=== PATIENT | female | born 1965 | race Caucasian/White ===

== ENCOUNTER 2018-11-13 13:53 | Inpatient (IN) | payer MEDICARE, MEDICAID ==
[~2018-11-13] VITALS: Ht 157.5 cm; Wt 89.7 kg
[2018-11-13] MEDS ORDERED: mag hydrox/Alum hydrox/simeth 30ml oral suspension PO PRN (14:05)
[2018-11-13] MEDS ORDERED: loperamide 2mg capsule PO PRN (14:05)
[2018-11-13] MEDS ORDERED: hydrOXYzine 25 MG tablet PO PRN (14:05)
[2018-11-13] MEDS ORDERED: acetaminophen 325mg tablet PO PRN ×2 (14:05)
[2018-11-13] MEDS ORDERED: NICOTINE POLACRILEX 2 MG LOZENGE MM PRN (14:05)
[2018-11-13] MEDS ORDERED: magnesium hydroxide 30ml (MOM) UD suspension PO PRN (14:05)
[2018-11-13] MEDS ORDERED: tuberculin, purif. prot. deriv. 5 units/0.1ml ID ONE (14:05)
[2018-11-13] MEDS ORDERED: NO HOME MEDS (14:45)
[2018-11-13] MEDS ORDERED: diphenhydrAMINE 50 mg/ml inj ONE (15:36)
[2018-11-13] MEDS ORDERED: haloperidol lactate 5mg/ml inj ONE (15:36)
[2018-11-13] MEDS ORDERED: LORazepam 2 mg/ml vial ONE (15:37)
--- NOTE | 2018-11-13 16:53 | NUR ---
Admission note: Pt admitted to [place] for Behavioral health at 1522 today for Psychosis. Pt transported from [facility] and wheel chaired to this unit. Pt 5150 for gravely disabled. Pt engaging in bizarre behavior at [facility] where police needed to intervene. Pt made statements about playing [employer]. Pt unable to identify friends, family or children. Pt reports long history of mental health issues. Pt was not cooperative upon arrival. Pt refusing to change into gown or enter the shower. Pt calling names and profanity. Pt making several statements about Jews, against jews, calling everyone Jews. While attempting to get ahold of MD to get medication orders, pt starts to trust the staff and somewhat cooperative. Pt answers questions for admission but refuses signatures. Pt wandering around the unit. PTs inventory completed.
[2018-11-13 19:00] VITALS: BP 116/75
[2018-11-13] MEDS: LORazepam 1 MG tablet PO PRN (20:25)
--- NOTE | 2018-11-14 01:47 | NUR ---
RN PROGRESS NOTE: LEGAL HOLD: 5150 for GD/Psychosis THIS SHIFT: Client was lying on her side, in bed, with her back to this RN. When asked about clients admission to [facility], client stated "Ahhh, I don't know. Ahh, I've been off my meds for about 20 years. Ahhh, I took Depakote 10 years ago. Ahh, I have schizophrenia." Initially the client spoke to this RN. The physical assessment was limited, as client declined assessment. The client then showed this RN her right arm, which was bruised and had an abrasion. Client stated, "The police beat me up! They wear tazers on their belts. They better not taze me! The police girl said she was gonna' taze me! I better not see her!" As client spoke she began to talk loudly and became agitated. At that point this RN concluded the assessment, assuring the client that she was safe on the unit and she could use the call light if she needed anything. The client accepted 1 mg Ativan Tab PO. At that time her mood had improved. Client did leave the room at snack time, ate and returned to bed. MSE: Client is is disheveled with messy hair. She has poor eye contact. Mood is labile, client is easily agitated. Affect is blunted. Tangential, client does not stay on topic. Compliant with medication. Client does not appear to understand what led up to her admission. Client is unable to arrange adequate food and fpc. Clients labile mood could lead to physical altercations, assault, or arrest. Client lacks insight and uses poor judgement at this time.
[2018-11-14 07:27] LABS: CHOL/HDL RATIO 3.8 (0.00-4.99); CHOLESTEROL 164 MG/DL (0-200); HDL CHOLESTEROL 43 MG/DL (35-60); LDL CHOLESTEROL 108 MG/DL (50-100); TRIGLYCERIDES 68 MG/DL (20-135)
[2018-11-14 07:34] LABS: HEMOGLOBIN A1C 4.9 % (4.5-6.2)
[2018-11-14 07:37] VITALS: BP 106/73
[2018-11-14] MEDS: LORazepam 1 MG tablet PO PRN ×2 (08:15→20:56)
--- NOTE | 2018-11-14 14:35 | NUR ---
Nursing Progress Note Legal hold: 5150 Client on voluntary/involuntary status for GD Report received from nurse Alba OLMSTEAD with use of SBAR Why are they here: Pt admitted to [place] for Behavioral health at 1522 today for Psychosis. Pt transported from [facility] and wheel chaired to this unit. Pt placed on 5150 for gravely disabled. Pt engaging in bizarre behavior at [facility] where police needed to intervene. Pt made statements about playing [employer]. Pt unable to identify friends, family or children. Pt reports long history of mental health issues. Assessment What has happened this shift: Patient asleep upon change of shift observation. Awakened for morning introductions and for AM blood draw. Cooperative with blood draw. Informed breakfast was ready. Presented as formal in behavior and tone of voice. "Yes Misty. I will go to breakfast now Misty. Thank you Misty." After breakfast stated she needed "the medications I take every morning: Ativan, Klonopin and Adderall." PRN order for Ativan available and given to patient. Patient has no scheduled medications to administer at this time. Patient again stated she has no memory of what brought her to the hospital. Stated "Things happened and then I ended up here." Minimal interaction with staff or peers. Kept herself isolated in her room. S/I, H/I:Did not answer A/VH: Did not respond Sleep: Napped off and on throughout the shift ADL's: Refused to shower Group attendance: Negative Were meds taken: Ativan 1 mg. PRN X 2 Any med S/E: None noted or verbalized by patient Mental Status Exam Appearance:Disheveled Eye contact: Poor Behavior: Isolative Speech: Abrupt Mood: Serious Affect: Flat Thought process: Linear Thought Content: Limited Cognition: Unable to assess at this time Insight: Unable to Assess Judgment:Unable to Assess Interventions PRN's used: Ativan 1 mg. PRN X 2 Therapeutic interventions: 1:1 assessment, provided therapeutic communication and active listening, provided medication administration/education/monitoring as ordered. Q15 min safety checks. Pt has been assigned a sitter. Restraints/seclusion/emergency medication: N/A Justification of Continued Inpatient Treatment: Pt. had a severe suicide attempt further medication adjustment to stabilize current crisis is needed. Without adequate treatment for current situation, pt is at high risk for readmission if discharged at this time.
[2018-11-14] MEDS ORDERED: haloperidol lactate 5mg/ml inj IM PRN (16:35)
[2018-11-14] MEDS ORDERED: LORazepam 2 mg/ml vial IV PRN (16:35)
[2018-11-14] MEDS ORDERED: haloperidol 5mg tablet PO PRN (16:35)
[2018-11-14] MEDS ORDERED: temazepam 15mg capsule PO PRN (19:25)
[2018-11-14 20:00] VITALS: BP 110/75
[2018-11-14] MEDS: hydrocortisone 1% cream 28gm TP SCH (20:48)
[2018-11-14] MEDS: PALIPERIDONE 3 MG TAB.ER.24 PO SCH (21:09)
--- NOTE | 2018-11-14 22:08 | NUR ---
Nursing Progress Note Legal hold: 5150 Client on voluntary/involuntary status for GD Report received from nurse Armin OLMSTEAD with use of SBAR Why are they here: Pt admitted to [place] for Behavioral health at 1522 today for Psychosis. Pt transported from [facility] and wheel chaired to this unit. Pt placed on 5150 for gravely disabled. Pt engaging in bizarre behavior at [facility] where police needed to intervene. Pt made statements about playing [employer]. Pt unable to identify friends, family or children. Pt reports long history of mental health issues. Assessment What has happened this shift: Patient in bed upon change of shift observation. Introduced self and observation and assessed pt. Patient was pleasant and cooperative with signing consents. Obtained MRSA swab and sent to lab. Pt up for snacks then returned to bed. New order for Invega started and prn Ativan given. Patient again stated she has no memory of what brought her to the hospital. Stated "Things happened and then I ended up here." Minimal interaction with staff or peers. Kept herself isolated in her room. S/I, H/I:Did not answer A/VH: Did not respond Sleep: Napped off and on throughout the shift ADL's: Refused to shower Group attendance: Negative Were meds taken: Ativan 1 mg. PRN X 2 Any med S/E: None noted or verbalized by patient Mental Status Exam Appearance:Disheveled Eye contact: Poor Behavior: Isolative Speech: Abrupt Mood: Serious Affect: Flat Thought process: Linear Thought Content: Limited Cognition: Unable to assess at this time Insight: Unable to Assess Judgment:Unable to Assess Interventions PRN's used: Ativan 1 mg. PRN X 2 Therapeutic interventions: 1:1 assessment, provided therapeutic communication and active listening, provided medication administration/education/monitoring as ordered. Q15 min safety checks. Pt has been assigned a sitter. Restraints/seclusion/emergency medication: N/A Justification of Continued Inpatient Treatment: Pt. had a severe suicide attempt further medication adjustment to stabilize current crisis is needed. Without adequate treatment for current situation, pt is at high risk for readmission if discharged at this time.
[2018-11-15 07:04] LABS: BASOPHILS # (AUTO) 0.1 X10'3 (0-0.2); BASOPHILS % (AUTO) 1.1 % (0-1); EOSINOPHILS # (AUTO) 0.2 X10'3 (0-0.9); EOSINOPHILS % (AUTO) 3.2 % (0-6); HEMATOCRIT 41.1 % (35.0-45.0); HEMOGLOBIN 13.9 g/dl (12.0-16.0); LYMPHOCYTES % (AUTO) 32.4 % (21-51); MEAN CORPUSCULAR HEMOGLOBIN 31.1 PG (27.0-31.0); MEAN CORPUSCULAR HGB CONC 33.8 g/dL (33.0-36.5); MEAN CORPUSCULAR VOLUME 92.1 FL (78-98); MEAN PLATELET VOLUME 8.4 FL (7.4-10.4); MONOCYTES # (AUTO) 0.4 X10'3 (0-0.9); MONOCYTES % (AUTO) 6.9 % (2-12); NEUTROPHILS # (AUTO) 3.5 X10'3 (1.8-7.7); NEUTROPHILS % (AUTO) 56.4 % (42-75); PLATELET COUNT 310 X10'3 (140-440); RED BLOOD COUNT 4.47 X10'6 (4.20-5.60); RED CELL DISTRIBUTION WIDTH 13.5 % (11.5-14.5); WHITE BLOOD COUNT 6.2 X10'3 (4.5-11.0)
[2018-11-15 07:21] VITALS: BP 94/73
[2018-11-15 07:34] LABS: ALANINE AMINOTRANSFERASE 31 U/L (12-78); ALBUMIN/GLOBULIN RATIO 0.8 (1.1-1.5); ALKALINE PHOSPHATASE 80 IU/L (46-116); ANION GAP 8 (8-16); ASPARTATE AMINO TRANSFERASE 21 U/L (10-37); BILIRUBIN,TOTAL 0.3 MG/DL (0.1-1.0); BLOOD UREA NITROGEN 15 MG/DL (7-18); BUN/CREATININE RATIO 19.2 (6.6-38.0); CALCIUM 8.7 MG/DL (8.5-10.1); CHLORIDE 107 MMOL/L (99-107); CREATININE 0.78 MG/DL (0.40-0.90); GLUCOSE 90 MG/DL (70-104); POTASSIUM 3.8 MMOL/L (3.5-5.1); SODIUM 141 MMOL/L (135-145); TOTAL CARBON DIOXIDE 25.7 MMOL/L (24-32); TOTAL PROTEIN 6.8 G/DL (6.4-8.2); eGFR 77 ML/MIN
[2018-11-15] MEDS: folic acid 1mg tablet PO SCH (08:32)
[2018-11-15] MEDS: multivitamins, therapeutics tablet PO SCH (08:33)
[2018-11-15] MEDS: thiamine 100mg tablet PO SCH (08:33)
[2018-11-15] MEDS: hydrocortisone 1% cream 28gm TP SCH ×2 (08:37→20:25)
--- NOTE | 2018-11-15 17:53 | NUR ---
Nursing Progress Note Legal hold: 5150 Client on voluntary/involuntary status for GD Report received from nurse Alba OLMSTEAD with use of SBAR Why are they here: Pt admitted to [place] for Behavioral health at 1522 today for Psychosis. Pt transported from [facility] and wheel chaired to this unit. Pt placed on 5150 for gravely disabled. Pt engaging in bizarre behavior at [facility] where police needed to intervene. Pt made statements about playing [employer]. Pt unable to identify friends, family or children. Pt reports long history of mental health issues. Assessment What has happened this shift: Patient in bed at change of shift. Patient was pleasant and cooperative with morning med pass. She was med compliant. She c/o her itchy bug bites on her legs. Patient continues to have no memory of why she is in hospital. Minimal interaction with staff or peers today. Kept herself isolated in her room most of the day. Dr Colindres reports that she will be starting oral Abilify instead of Invega tonight, as she is resistant to taking Invega. Also D/C CIWA monitoring as she has been consistently stable. S/I, H/I: Unknown A/VH: unknown Sleep: 6.25 NOC ADL's: Refused to shower Group attendance: Negative Were meds taken: yes Any med S/E: None noted or verbalized by patient Mental Status Exam Appearance:Disheveled Eye contact: Poor Behavior: Isolative Speech: Abrupt Mood: Serious Affect: Flat Thought process: Linear Thought Content: Limited Cognition: Unable to assess at this time Insight: Unable to Assess Judgment:Unable to Assess Interventions PRN's used: N/A Therapeutic interventions: 1:1 assessment, provided therapeutic communication and active listening, provided medication administration/education/monitoring as ordered. Q15 min safety checks. Pt has been assigned a sitter. Restraints/seclusion/emergency medication: N/A Justification of Continued Inpatient Treatment: Pt. had a severe suicide attempt further medication adjustment to stabilize current crisis is needed. Without adequate treatment for current situation, pt is at high risk for readmission if discharged at this time.
[2018-11-15 20:00] VITALS: BP 115/76
[2018-11-15] MEDS: PALIPERIDONE 3 MG TAB.ER.24 PO SCH (20:24)
[2018-11-15] MEDS ORDERED: aripiprazole 5mg tablet PO SCH (21:00)
--- NOTE | 2018-11-16 00:08 | NUR ---
Nursing Progress Note Legal hold: 5150 Client on voluntary/involuntary status for GD Report received from nurse Thomas RN with use of SBAR Why are they here: Pt admitted to [place] for Behavioral health at 1522 today for Psychosis. Pt transported from [facility] and wheel chaired to this unit. Pt placed on 5150 for gravely disabled. Pt [place] [facility]. Pt made statements about playing [employer]. Pt unable to identify friends, family or children. Pt reports long history of mental health issues. Assessment What has happened this shift: Patient in bed at change of shift. Patient was pleasant and cooperative with HS med pass. She refuses to sign medication consent this evening. When asked if she talked to the Dr about Abilify she nods, the medication consent is explained again, but patient still refuses to sign it. She also refuses a physical assessment only allowing minimal interaction and would not allow this group underwriter to use her stethoscope to assess her. She nods or shakes her heads for some questions, but then covers her head and will no longer interact with this group underwriter. S/I, H/I: Unknown A/VH: Unknown Sleep: See sleep assessment ADL's: Refused to shower Group attendance: No groups this shift went to group room for evening snack Were meds taken: yes Any med S/E: None noted or verbalized by patient Mental Status Exam Appearance: Disheveled Eye contact: Poor Behavior: Isolative, fearful Speech: None, only would nod or shake head Mood: Appears fearful, stays under sheets/blanket Affect: Congruent to mood Thought process: Unable to assess Thought Content: Limited Cognition: Unable to assess at this time Insight: Unable to Assess Judgment: Unable to Assess Interventions PRN's used: N/A Therapeutic interventions: 1:1 assessment, provided therapeutic communication and active listening, provided medication administration/education/monitoring as ordered. Q15 min safety checks. Pt has been assigned a sitter. Restraints/seclusion/emergency medication: N/A Justification of Continued Inpatient Treatment: Pt. had a severe suicide attempt further medication adjustment to stabilize current crisis is needed. Without adequate treatment for current situation, pt is at high risk for readmission if discharged at this time.
[2018-11-16 08:00] VITALS: BP 110/72
[2018-11-16] MEDS ORDERED: PALIPERIDONE 3 MG TAB.ER.24 PO SCH (08:00)
[2018-11-16] MEDS: LORazepam 1 MG tablet PO PRN (08:17)
[2018-11-16] MEDS: folic acid 1mg tablet PO SCH (08:18)
[2018-11-16] MEDS: thiamine 100mg tablet PO SCH (08:18)
[2018-11-16] MEDS: hydrocortisone 1% cream 28gm TP SCH ×2 (08:23→20:28)
[2018-11-16] MEDS: multivitamins, therapeutics tablet PO SCH (08:23)
--- NOTE | 2018-11-16 12:04 | NUR ---
Nursing 1:1 Documentation Patient out of bed and sitting in the rec room upon change of shift inspection. Matter of fact upon staff approach. "Philly Jay. I know. You are going to be my nurse today." Declined to participate in a mental health assessment. Refused to sign medication consent for Abilify. Stated "No.No. I'm not taking Abilify. Find me another drug." Dr. Colindres here and informed of patient's decision to refuse Abilify. Invega 3 mg. PO ordered and administered without event. Patient informed today was her day to take a shower. She agreed to take a shower today "but only after Madison, Belinda, and Germainsharronlane get their showers first. We need to go in order." Patient presents as believing she is part of the staff or needing to contribute to the unit process. It is difficult to assess what patient believes about what brought her to the hospital and why she remains here.
[2018-11-16] MEDS ORDERED: LORazepam 2 mg/ml vial IV PRN (16:35)
[2018-11-16] MEDS ORDERED: LORazepam 1 MG tablet PO PRN (16:35)
--- NOTE | 2018-11-16 17:25 | NUR ---
Nursing Progress Note Legal hold: 5150 Client on voluntary/involuntary status for GD Report received from nurse Thomas RN with use of SBAR Why are they here: [facility]22 today for Psychosis. Pt transported from [facility] and wheel chaired to this unit. Pt placed on 5150 for gravely disabled. Pt engaging in bizarre behavior at [facility] [place] where police needed to intervene. Pt made statements about playing [employer] Pt unable to identify friends, family or children. Pt reports long history of mental health issues. Assessment What has happened this shift: Please see note written earlier this shift S/I, H/I: Unknown A/VH: Unknown Sleep: See sleep assessment ADL's: Refused to shower Group attendance: No groups this shift went to group room for evening snack Were meds taken: yes Any med S/E: None noted or verbalized by patient Mental Status Exam Appearance: Showered today Eye contact: Present Behavior: Appropriate Speech: Clear/[place] Mood: Pleasant Affect: Appropriate Thought process: Linear Thought Content: Limited Cognition: Unable to assess at this time Insight: Unable to Assess Judgment: Unable to Assess Interventions PRN's used: N/A Therapeutic interventions: 1:1 assessment, provided therapeutic communication and active listening, provided medication administration/education/monitoring as ordered. Q15 min safety checks. Pt has been assigned a sitter. Restraints/seclusion/emergency medication: N/A Justification of Continued Inpatient Treatment: Pt. had a severe suicide attempt further medication
[2018-11-16 20:05] VITALS: BP 116/76
--- NOTE | 2018-11-16 23:44 | NUR ---
Nursing Progress Note Legal hold: 5150 Client on voluntary/involuntary status for GD Report received from nurse Moriah RN with use of SBAR Why are they here: [facility] at 1522 today for Psychosis. Pt transported from [facility] and wheel chaired to this unit. Pt placed on 5150 for gravely disabled. Pt engaging in bizarre behavior at [facility] where police needed to intervene. Pt made statements about playing [employer]. Pt unable to identify friends, family or children. Pt reports long history of mental health issues. Assessment What has happened this shift: Patient in bed at change of shift laying in her bed under the covers with only the top of her head and eyes showing. She is hesitant but agrees to a 1;1 assessment. She reports "It was a busy day. I went to groups and saw Dr. Colindres. I'm exhausted." After that patient turned back to only nodding and shaking her head. She say's she is hearing voices but does not elaborate, when asked about her arm injury patient just looked at this resume writer in silence. She remained in her room in bed the remainder of the shift. S/I, H/I: Denies A/VH: +AH Sleep: See sleep assessment ADL's: Showered today Group attendance: No groups this shift Were meds taken: Yes Any med S/E: None noted or verbalized by patient Mental Status Exam Appearance: Disheveled Eye contact: Poor Behavior: Isolative Speech: None, only would nod or shake head Mood: Appears fearful, stays under sheets/blanket Affect: Congruent to mood Thought process: Linear Thought Content: Focused on being tired and getting rest Cognition: Unable to assess at this time Insight: Unable to Assess Judgment: Unable to Assess Interventions PRN's used: N/A Therapeutic interventions: 1:1 assessment, provided therapeutic communication and active listening, provided medication administration/education/monitoring as ordered. Q15 min safety checks. Pt has been assigned a sitter. Restraints/seclusion/emergency medication: N/A Justification of Continued Inpatient Treatment: Pt. had a severe suicide attempt further medication adjustment to stabilize current crisis is needed. Without adequate treatment for current situation, pt is at high risk for readmission if discharged at this time.
[2018-11-17 08:00] VITALS: BP 90/69
[2018-11-17] MEDS: hydrocortisone 1% cream 28gm TP SCH ×2 (08:43→21:37)
[2018-11-17] MEDS: PALIPERIDONE 3 MG TAB.ER.24 PO SCH (08:43)
--- NOTE | 2018-11-17 17:42 | NUR ---
Nursing Progress Note Legal hold: 5150 Client on voluntary/involuntary status for GD Report received from nurse Natalia Lugo RN with use of SBAR Why are they here: [facility] at 1522 today for Psychosis. Pt transported from [facility] and wheel chaired to this unit. Pt placed on 5150 for gravely disabled. Pt engaging in bizarre behavior at [facility] [place] where police needed to intervene. Pt made statements about playing [employer]. Pt unable to identify friends, family or children. Pt reports long history of mental health issues. Assessment What has happened this shift: Patient up in visible this morning sitting in recreation room by herself staring out the window. Patient continues to endorse auditory hallucinations at times though she would not elaborate on content other than saying it was not bad. Patient denies depression, though she has flat affect. Patient denies suicidal thoughts at this time. Patient did attend all meals and groups. Patient does not initiate interaction with others. S/I, H/I: Unknown A/VH: yes Sleep: See sleep assessment ADL's: Refused to shower Group attendance: yes Were meds taken: yes Any med S/E: None noted or verbalized by patient Mental Status Exam Appearance: hospital scrubs, clean Eye contact: Present Behavior: Appropriate Speech: Clear/[place] Mood: Pleasant Affect: Appropriate Thought process: Linear Thought Content: Limited Cognition: Unable to assess at this time Insight: Unable to Assess Judgment: Unable to Assess Interventions PRN's used: N/A Therapeutic interventions: 1:1 assessment, provided therapeutic communication and active listening, provided medication administration/education/monitoring as ordered. Q15 min safety checks. Pt has been assigned a sitter. Restraints/seclusion/emergency medication: N/A Justification of Continued Inpatient Treatment: Pt. had a severe suicide attempt further medication
[2018-11-17 20:00] VITALS: BP 110/73
[2018-11-17] MEDS: LORazepam 1 MG tablet PO PRN (21:36)
--- NOTE | 2018-11-18 00:59 | NUR ---
Nursing Progress Note: Legal hold: Voluntary Client on voluntary GD Report received from nurse with use of SBAR: AYSHA Major Why are they here: Pt admitted for Psychosis after being transported by [facility]. Pt placed on 5150 for gravely disabled. She was engaging in bizarre behavior at [facility] where police needed to intervene. Pt made statements about playing [employer]. Pt unable to identify friends, family or children. Pt reports long history of mental health issues including schizophrenia. Assessment What has happened this shift: Pt. presents as fatigued and isolates in bed throughout the shift. 1:1 completed at bedside, pt. is cooperative, anxious, guarded, and requests PRN Ativan for anxiety. She is alert and oriented X3, reports she is at [facility], however is easily reoriented by this scientific writer. Pt. denies any A/V/LYNCH at this time, however states, "I sometimes have them, I have schizophrenia." She also reports PTSD r/t past trauma and states, "I'm grateful to be here, it's not safe outside, and I feel like I'm being followed." She reports that she is triggered by loud noises and machine gun fire. Pt. admits that she continues to feel paranoid and fear for her safety here on the unit, but is unable to articulate why r/t disorganized thoughts. This scientific writer reassured pt. of the safety on the unit and encouraged her request assistance from staff for any needs, pt. voiced content. Ordered Hydrocortisone Cream applied to bilateral lower extremities, will monitor. S/I, H/I: N/A A/VH: Denies at this time, does not appear to be internally preoccupied Sleep: Presents as fatigued and reports she sleeps well ADL's: Requires prompting and encouragement from staff Group attendance: Pt. does not attend HS snack Were meds taken: Yes Any med S/E: None Mental Status Exam Appearance: Hair is somewhat disheveled, however dressed appropriately in hospital attire Eye contact: Fair Behavior: Cooperative, anxious, guarded, and isolative Speech: Somewhat pressured at times and responds only to questions Mood: Hypervigilant Affect: Constricted Thought process: Disorganized at times, however is able to be redirected Thought Content: Paranoid delusions and phobias regarding her environment and safety Cognition: Alert and oriented X3, reports she is at [facility], however is easily reoriented by this scientific writer Insight: Poor to fair Judgment: Poor to fair Interventions PRN's used: Ativan X1 Therapeutic interventions: Established rapport, maintained a safe and therapeutic environment, provided clear and simple instructions, reoriented to reality as needed, reassured pt. of the safety on the unit and encouraged her request assistance from staff for any needs, and maintained Q 15 min safety checks. Restraints/seclusion/emergency medication: N/A Justification of Continued Inpatient Treatment: Pt. requires interruption of current crisis, medication stabilization, and a safe and supportive environment.
[2018-11-18 07:33] VITALS: BP 107/69
[2018-11-18] MEDS: hydrocortisone 1% cream 28gm TP SCH ×2 (08:00→20:00)
[2018-11-18] MEDS: PALIPERIDONE 3 MG TAB.ER.24 PO SCH (08:01)
--- NOTE | 2018-11-18 14:49 | NUR ---
Nursing Progress Note: Legal hold: Voluntary Client on voluntary GD Report received from nurse with use of SBAR: Natalia Quiros RN Why are they here: Pt admitted for Psychosis after being transported by [facility]. Pt placed on 5150 for gravely disabled. [place] [facility] [place]. Pt made statements about playing [employer]. Pt unable to identify friends, family or children. Pt reports long history of mental health issues including schizophrenia. Assessment What has happened this shift: Received Pt in bed sleeping w/o distress at beginning of shift. Pt took AM meds and ate breakfast with others. Patient spent time in recreation room by herself staring out the window. Responds to questions in soft clear voice, but does not initiate conversation with staff or peers and isolates. Although guarded, she is pleasant and cooperative. Endorses AH and appears to be mentally preoccupied with flat affect and monotone voice. Took naps throughout day. S/I, H/I: N/A A/VH: Denies at this time, does not appear to be internally preoccupied Sleep: Presents as fatigued and reports she sleeps well ADL's: Requires prompting and encouragement from staff Group attendance: Pt. does not attend HS snack Were meds taken: Yes Any med S/E: None Mental Status Exam Appearance: Hair is somewhat disheveled, however dressed appropriately in hospital attire Eye contact: Fair Behavior: Cooperative, anxious, guarded, and isolative Speech: Somewhat pressured at times and responds only to questions Mood: Hypervigilant Affect: Constricted Thought process: Disorganized at times, however is able to be redirected Thought Content: Paranoid delusions and phobias regarding her environment and safety Cognition: Alert and oriented X3 Judgment: Poor to fair Interventions PRN's used: None Therapeutic interventions: Established rapport, maintained a safe and therapeutic environment, provided clear and simple instructions, reoriented to reality as needed, reassured pt. of the safety on the unit and encouraged her request assistance from staff for any needs, and maintained Q 15 min safety checks. Restraints/seclusion/emergency medication: N/A Justification of Continued Inpatient Treatment: Pt. requires interruption of current crisis, medication stabilization, and a safe and supportive environment.
[2018-11-18] MEDS ORDERED: LORazepam 2 mg/ml vial IV PRN (16:35)
[2018-11-18] MEDS ORDERED: LORazepam 1 MG tablet PO PRN (16:35)
[2018-11-18 20:00] VITALS: BP 100/64
--- NOTE | 2018-11-19 02:28 | NUR ---
Nursing Progress Note: Legal hold: Voluntary Client on voluntary GD Report received from nurse with use of SBAR: AYSHA Major Why are they here: Pt admitted for Psychosis after being transported by [facility]. Pt placed on 5150 for gravely disabled. She was engaging in bizarre [place] [facility] [place] needed to intervene. Pt made statements about playing [employer]. Pt unable to identify friends, family or children. Pt reports long history of mental health issues including schizophrenia. Assessment What has happened this shift: Pt. in bed at the beginning of the shift, and continues to isolate here throughout most of the shift, however does attend HS snack and sits in the Recreation Room staring out the window for a short time. Upon seeing this writer technical publications she is very preoccupied and concerned with getting her laundry back from being washed. Pt. states almost in a panic-like way, "I need my clothes, they took them to wash them! Now they are in the ...."(pt. meaning to say dryer, but is unable to find the word). This writer technical publications assured pt. that her clothes would be dried and returned to her, she voiced content. Attempted to complete 1:1 later at bedside, pt. presents as fatigued, guarded, and is non-cooperative with mental or physical assessment. She also refuses ordered HS medication, Hydrocortisone Cream to be applied to bilateral lower extremities. Pt. states bluntly, "Not right now, in the morning." TP continues to be somewhat disorganized, when asked by this writer technical publications if she enjoyed HS snack, pt. states, "There are a lot of diabetics here." Pt. appears to be resting comfortably, will continue to monitor. S/I, H/I: N/A A/VH: Appears to be internally preoccupied Sleep: Presents as fatigued and reports she sleeps well ADL's: Requires prompting and encouragement from staff Group attendance: Pt. attends HS snack Were meds taken: NO Any med S/E: None Mental Status Exam Appearance: Hair is somewhat disheveled, however dressed appropriately in hospital attire Eye contact: Fair Behavior: Fatigued, resistive to care, guarded, and isolative Speech: Somewhat pressured at times and responds only minimally to questions Mood: Hypervigilant Affect: Constricted Thought process: Disorganized at times, however is able to be redirected Thought Content: Paranoid delusions and phobias regarding her environment and safety, also possible A/V/LYNCH Cognition: Alert and oriented X3 Insight: Poor to fair Judgment: Poor to fair Interventions PRN's used: None Therapeutic interventions: Maintained a safe and therapeutic environment, provided clear and simple instructions, reoriented to reality as needed, reassured pt. of the safety on the unit, encouraged independent performance of ADLs, and maintained Q 15 min safety checks. Restraints/seclusion/emergency medication: N/A Justification of Continued Inpatient Treatment: Pt. requires interruption of current crisis, medication stabilization, and a safe and supportive environment.
[2018-11-19 07:56] VITALS: BP 98/69
[2018-11-19] MEDS: PALIPERIDONE 3 MG TAB.ER.24 PO SCH (08:49)
[2018-11-19] MEDS: hydrocortisone 1% cream 28gm TP SCH ×2 (08:50→20:00)
--- NOTE | 2018-11-19 10:11 | NUR ---
Morning Nursing Progress Note: Legal hold: Voluntary Client on voluntary GD Report received from nurse with use of SBAR: Natalia Lugo RN Why are they here: Pt admitted for Psychosis after being transported by [facility]. Pt placed on 5150 for gravely disabled. [place] [facility] [place]. Pt made statements about playing [employer]. Pt unable to identify friends, family or children. Pt reports long history of mental health issues including schizophrenia. Assessment What has happened this shift: Pt sleeping at change of shift. She gets up early and is observed sitting by the window in the rec room. She joins others for breakfast and then stays in group room to color and listen to music. She takes her PO medication without issue. She initially refuses Hydrocortisone cream stating that she likes to put it on at night because it soaks in better and that the cream is almost gone. She is assured more can be ordered if needed. She changes her mind and applies the cream to affected areas, she reports improvement. She is not conversational but is friendly and enjoys talking about music. Report given to Alexis OLMSTEAD
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
[2018-11-20] MEDS: hydrocortisone 1% cream 28gm TP SCH ×3 (08:49→20:46)
[2018-11-20] MEDS: PALIPERIDONE 3 MG TAB.ER.24 PO SCH (08:49)
--- NOTE | 2018-11-20 14:10 | NUR ---
Patient eating well and meeting needs, PO Intake 75-100%. No GI symptoms, skin intact. No nutrition problem at this time. Will continue to follow. Recommend: 1. continue regular diet 2. bowel care as needed 3. Weekly weights Addendum: 11/20/18 at [address] Amended: Links added.
[2018-11-20 16:16] VITALS: BP 115/74
[2018-11-20] MEDS: LORazepam 1 MG tablet PO PRN (16:20)
--- NOTE | 2018-11-20 16:36 | NUR ---
Nursing Progress Note: Legal hold: Voluntary Client on voluntary GD Report received from nurse with use of SBAR: AYSHA Moser Why are they here: Pt admitted for Psychosis after being transported by [facility]. Pt placed on 5150 for gravely disabled. She was engaging in bizarre behavior at [facility] [place] intervene. Pt made statements about playing [employer]. Pt unable to identify friends, family or children. Pt reports long history of mental health issues including schizophrenia. Assessment What has happened this shift: Patient is observed sleeping at change of shift. She wakes and joins others for breakfast. She takes her medication without issue and asks appropriate questions like, what is that and what is it for? Medication education provided to patient. She reports that she is doing well and that she slept well. She is pleasant when spoken to. She states that she used to do well unmedicated, her psychotic breaks happening every 12years up until recently. She states that she had a break one year ago and now this one. She states that the S/Es from medications worry her and she used to weigh 30lbs more when she was on Abilify. She reports she has not taken Invega before nor has she had Risperdal or Risperidone. Medication education is provided. Patient denies the use of drugs or alcohol as part of her break. Relates it to increased stress. She reports increased anxiety, Ativan administered. S/I, H/I: none reported A/VH: Reports improvement in AH, does not elaborate Sleep: 10hrs NOC ADL's: Requires prompting and encouragement from staff Group attendance: yes Were meds taken: yes Any med S/E: None reported or observed Mental Status Exam Appearance: appropriate,green scrubs Eye contact: direct Behavior: Pleasant, cooperative Speech: soft tone, normal rate/rhythm Mood: reports she is ok Affect: restricted with occasional brightening Thought process: linear Thought Content: no delusional thought content expressed Cognition: Alert and oriented X3 Insight: poor to fair Judgment: Poor to fair Interventions PRN's used: Ativan Restraints/seclusion/emergency medications: None Therapeutic interventions: 1:1 therapeutic assessment, provided active listening with positive feedback, maintained safe therapeutic milieu, provided medication education as needed, monitored for change in behavior and Q15 minute checks, maintained therapeutic. Justification of Continued Inpatient Treatment: Continued therapeutic support and medication management needed to provide stabilization, prevent decompensation, decreasing risk to patient and readmittance.
[2018-11-20] MEDS ORDERED: hydrOXYzine 25 MG tablet PO PRN (16:40)
[2018-11-20 20:00] VITALS: BP 101/67
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
[2018-11-21] MEDS: hydrocortisone 1% cream 28gm TP SCH ×2 (07:31→20:13)
[2018-11-21] MEDS: PALIPERIDONE 3 MG TAB.ER.24 PO SCH (07:31)
[2018-11-21 08:36] VITALS: BP 95/52
--- NOTE | 2018-11-21 16:46 | NUR ---
Nursing Progress Note: Legal hold: Voluntary Client on voluntary GD Report received from nurse with use of SBAR: AYSHA Willis Why are they here: Pt admitted for Psychosis after being transported by [facility]. Pt placed on 5150 for gravely disabled. She was engaging in bizarre behavior at [facility] [place] where [place] needed to intervene. Pt made statements about playing [employer]. Pt unable to identify friends, family or children. Pt reports long history of mental health issues including schizophrenia. Assessment What has happened this shift: Patient is observed sleeping at change of shift but wakes early needing to use the bathroom, not being able to get there in time and had urinary incontinence on the floor. She takes her medication without issue and requests to take shower. She attends groups and does not isolate all day. In the afternoon she c/o anxiety and requests Maris, RN administered. Patient states that she is doing well and denies any other needs. S/I, H/I: none reported A/VH: Reports improvement in AH Sleep: 8.25hrs NOC ADL's: Independent, showered today Group attendance: yes Were meds taken: yes Any med S/E: None reported or observed Mental Status Exam Appearance: appropriate, green scrubs Eye contact: direct Behavior: Pleasant, cooperative Speech: soft tone, normal rate/rhythm Mood: good Affect: restricted with occasional brightening Thought process: linear Thought Content: no delusional thought content expressed Cognition: Alert and oriented X3 Insight: poor to fair Judgment: Poor to fair Interventions PRN's used: Ativan Restraints/seclusion/emergency medications: None Therapeutic interventions: 1:1 therapeutic assessment, provided active listening with positive feedback, maintained safe therapeutic milieu, provided medication education as needed, monitored for change in behavior and Q15 minute checks, maintained therapeutic. Justification of Continued Inpatient Treatment: Continued therapeutic support and medication management needed to provide stabilization, prevent decompensation, decreasing risk to patient and readmittance.
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
[2018-11-22 08:31] VITALS: BP 113/76
[2018-11-22] MEDS: hydrocortisone 1% cream 28gm TP SCH ×2 (08:32→20:00)
[2018-11-22] MEDS: PALIPERIDONE 3 MG TAB.ER.24 PO SCH (08:32)
[2018-11-22] MEDS: LORazepam 1 MG tablet PO PRN (13:30)
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
[2018-11-22 20:00] VITALS: BP 111/65
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
[2018-11-23 07:30] VITALS: BP 97/64
[2018-11-23] MEDS: PALIPERIDONE 3 MG TAB.ER.24 PO SCH (08:18)
[2018-11-23] MEDS: hydrocortisone 1% cream 28gm TP SCH ×2 (09:05→21:11)
--- NOTE | 2018-11-23 13:17 | NUR ---
DISCHARGE PLANNING: SW met w/ pt, who reports she does not have adequate funds on her credit card for a "hold" through the car rental service provided by her insurance company. Pt reports she is willing to utilize public transportation and inquired about the cost. SW informed pt of the cost of [employer] and [employer]. Pt reports she does not have funding for either. SW informed administration who gave approval for credit card payment by [facility] to purchase the [employer] ticket. SW coordinated transportation by taxi with pick and shovel worker time of 11/24/2018 at 0230hours with destination to [facility] station [facility]. SW informed provider of the current discharge plan. Provider agreed to complete discharge orders and medication orders for pt. Yelena Simons, Survey Research Center Director, [facility] [id number] Supervised by Olaf Portillo, [id number] Addendum: 11/23/18 at 1339 by Yelena Simons SS addition/change: JOVANNY coordinated w/ accounting to purchase train ticket. At time of purchase, train ticket was unavailable and canceled. SW coordinated for [employer] bus ticket. Patient will be transported by taxi from [facility] main lobby at 0120hours on 11/24/2018 to the [facility] [employer] station. End note.
[2018-11-23] MEDS ORDERED: ATI1T PO (15:12)
[2018-11-23] MEDS ORDERED: HYDR28CR14 TP (15:12)
[2018-11-23] MEDS ORDERED: PALI6TAB6 PO (15:12)
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
[2018-11-23] MEDS: LORazepam 1 MG tablet PO PRN (17:38)
[2018-11-23 20:14] VITALS: BP 105/68
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
== END 2018-11-24 01:20 | disposition home or self-care (01) | DRG 885 ==
LOC: ADULT MH 13:53
PROVIDERS: ADMIT Psychiatry & Neurology Psychiatry; ATTEND Psychiatry & Neurology Psychiatry
DX: F20.1 Disorganized schizophrenia (principal); F10.10 Alcohol abuse, uncomplicated; G43.909 Migraine, unspecified, not intractable, without status migrainosus; H93.19 Tinnitus, unspecified ear; R21 Rash and other nonspecific skin eruption; S50.11XA Contusion of right forearm, initial encounter; Z59.0 Homelessness; Z80.7 Family history of other malignant neoplasms of lymphoid, hematopoietic and related tissues; Z81.8 Family history of other mental and behavioral disorders; Z91.19 Patient's noncompliance with other medical treatment and regimen; Z88.5 Allergy status to narcotic agent; Z98.891 History of uterine scar from previous surgery; V89.2XXA Person injured in unspecified motor-vehicle accident, traffic, initial encounter; Y93.89 Activity, other specified; Y92.89 Other specified places as the place of occurrence of the external cause; Y99.8 Other external cause status
CPT/HCPCS: 36415; 80053; 80061; 83036; 85025; 85610; 87081; 99285; J1200; J1630; J2060; Z7610